=== PATIENT | female | born 1945 | race Caucasian/White ===

== ENCOUNTER → 2017-12-06 | Outpatient (CLI) | payer MEDICARE, OTHER ==
--- NOTE | 2017-12-09 09:43 | RADIOLOGY IMAGING REPORT ---
FACILITY: [facility] PATIENT NAME: CICI REECE : [id number] MR: [id number] V: [id number] EXAM DATE: [id number] ORDERING PHYSICIAN: SYED OLIVA TECHNOLOGIST: Georgiana Ly PROCEDURE:BILATERAL DIGITAL SCREENING MAMMOGRAM WITH CAD ASSISTED INTERPRETATION AND 3D BREAST TOMOSYNTHESIS. COMPARISON:Prior mammograms dated 05/26/15, 05/06/14, 11/13/12 and 10/23/11. INDICATIONS:SCREENING. FINDINGS: A small amount of fibroglandular tissue is seen throughout the breasts. The parenchymal pattern has remained stable when allowing for difference in mammographic technique and patient positioning. There is no evidence of malignant appearing mass, malignant appearing calcification or other secondary sign of malignancy in either breast. DIAGNOSTIC CATEGORY 1--NEGATIVE. RECOMMENDATIONS: ROUTINE MAMMOGRAM AND CLINICAL EVALUATION. IMPRESSION: Bi-RADS 1: No significant abnormality is seen. Images were reviewed with R2CAD and 3D breast tomosynthesis. Dictated by: Candice Son M.D. on 12/06/2017 at 15:24 Transcribed by: [email or web address] on 12/08/2017 at 15:09 Approved by: Candice Son M.D. on 12/09/2017 at 9:41 [facility]
== END ==
LOC: MAMO 12-05 01:54
PROVIDERS: ATTEND Internal Medicine
DX: Z12.31 Encounter for screening mammogram for malignant neoplasm of breast (principal)
CPT/HCPCS: 77063; 77067

== ENCOUNTER → 2019-03-31 | Outpatient (CLI) | payer MEDICARE, OTHER ==
--- NOTE | 2019-04-01 08:24 | RADIOLOGY IMAGING REPORT ---
FACILITY: [facility] PATIENT NAME: CICI REECE : [id number] MR: [id number] V: [id number] EXAM DATE: ORDERING PHYSICIAN: SYED OLIVA TECHNOLOGIST: Georgiana Ly PROCEDURE: BILATERAL DIGITAL SCREENING MAMMOGRAM WITH CAD ASSISTED INTERPRETATION & 3D TOMOSYNTHESIS REASON FOR STUDY: Screening. FAMILY HISTORY OF BREAST CANCER: Maternal Aunt. BREAST PROCEDURES/TREATMENTS: None. COMPARISON: Prior mammograms 12/06/17, 05/26/15, 05/06/14, 11/13/12. VIEWS OBTAINED: 2D & 3D full field CC & MLO. BREAST DENSITY: There are scattered areas of fibroglandular density throughout the breasts. MAMMOGRAM FINDINGS: The parenchymal pattern has remained stable allowing for difference in mammographic technique & patient positioning. IMPRESSION: BIRADS 1: Negative. DIAGNOSTIC CATEGORY 1--NEGATIVE. RECOMMENDATIONS: ROUTINE MAMMOGRAM AND CLINICAL EVALUATION. Dictated by: Candice Son M.D. on 03/31/2019 at 16:34 Transcribed by: VALE on 04/01/2019 at 7:56 Approved by: Candice Son M.D. on 04/01/2019 at 8:23 [facility]
== END ==
LOC: MAMO 01-07 13:33
PROVIDERS: ATTEND Internal Medicine
DX: Z12.31 Encounter for screening mammogram for malignant neoplasm of breast (principal)
CPT/HCPCS: 77063; 77067